=== PATIENT | female | born 1985 ===

== ENCOUNTER 2018-07-06 10:16 | Emergency (ER) | payer BC, OTHER ==
[~2018-07-06] VITALS: Ht 180.3 cm; Wt 99.1 kg
[2018-07-06 12:07] LABS: MICROSCOPIC INDICATED
[2018-07-06 12:25] LABS: CULTURE INDICATED? YES
[2018-07-06] MEDS ORDERED: CEFTRIAXONE 250 MG IM ONE (13:00)
[2018-07-06] MEDS ORDERED: AZITHROMYCIN 250 MG TABLET PO ONE (13:00)
[2018-07-06] MEDS ORDERED: AZITHROMYCIN 250 MG TABLET ONE (13:01)
[2018-07-06] MEDS ORDERED: CEFTRIAXONE 250 MG ONE (13:01)
[2018-07-06 13:45] VITALS: BP 116/74
== END 2018-07-06 14:24 | disposition home or self-care (01) ==
LOC: ED 14:18
DX: A56.02 Chlamydial vulvovaginitis (principal); A54.02 Gonococcal vulvovaginitis, unspecified; F17.200 Nicotine dependence, unspecified, uncomplicated
CPT/HCPCS: 81001; 87086; 87491; 87591; 96372; 99283; J0696